=== PATIENT | male | born 1985 | race Caucasian/White ===

== ENCOUNTER → 2016-10-04 | Outpatient (CLI) | payer BC, SELFPAY | LOC: KOH-I 09-03 08:30 | DX: R11.10 Vomiting, unspecified (principal); K76.0 Fatty (change of) liver, not elsewhere classified | CPT/HCPCS: 76705 ==

== ENCOUNTER → 2016-10-22 | Outpatient (CLI) | payer BC, SELFPAY | LOC: NM 13:00 | DX: R11.0 Nausea (principal); R93.3 Abnormal findings on diagnostic imaging of other parts of digestive tract | CPT/HCPCS: 78264; A9541 ==

== ENCOUNTER → 2021-12-28 | Outpatient (CLI) | payer OTHER | LOC: EXRD 09:21 | DX: R74.01 Elevation of levels of liver transaminase levels (principal); K76.0 Fatty (change of) liver, not elsewhere classified | CPT/HCPCS: 76700 ==